=== PATIENT | male | born 1945 | race Caucasian/White ===

== ENCOUNTER 2017-01-12 09:06 | Day surgery (SDC) | payer MEDICARE, BC ==
[~2017-01-12] VITALS: Ht 182.9 cm; Wt 113.6 kg
[~2017-01-12 09:06] MED LIST: BAYER CHEWABLE81 MG PO; CIPRO500 MG PO; CO Q-10100 MG PO; COENZYME Q1030 MG PO; FLAGYL500 MG PO; GLUCOSAMINE & C1 CAP; MULTI-DAY VITAM1 TAB PO; MULTIPLE VITAMI1 TA1 PO; NORCO 5/325 TAB1 TA1 PO; OMEGA-3100 MG; PRAVACHOL20 MG PO; PRILOSEC20 MG PO; VIAGRA100 MG PO; ZYVOX600 MG PO
[2017-01-12] MEDS ORDERED: GLUCOSAMINE & C1 CAP PO (10:57)
[2017-01-12] MEDS ORDERED: FISH OIL 1,0001 CA1 PO (10:57)
[2017-01-12 11:01] VITALS: BP 145/91; Ht 182.9 cm; Wt 113.6 kg
[2017-01-12 11:52] LABS: BASOPHILS 0.3 % (0-2); EOSINOPHILS 2.2 % (0-7); HEMATOCRIT 44.9 % (42.0-54.0); HEMOGLOBIN 15.2 g/dL (13.5-17.5); LYMPHOCYTES 40.4 % (15-50); MCH 30.6 pg (26.0-34.0); MCHC 33.9 g/dL (31.0-37.0); MCV 90.5 fL (80.0-100.0); MEAN PLATELET VOLUME 10.6 fL (7.4-10.4); MONOCYTES 7.3 % (2-11); NEUTROPHILS 49.8 % (40-80); PLATELET COUNT 174 10x3/uL (130-400); RBC 4.96 10x6/uL (4.20-6.10); RDW 13.5 % (11.5-14.5); WBC 3.7 10x3/uL (4.8-10.8)
--- NOTE | 2017-01-12 12:40 | NUR ---
PT REC'D TO ROOM VIA STRETCHER. ALERT, AWAKE.
[2017-01-12 12:46] LABS: CALC OSMOLALITY 278 mosm/kg (275-300); CALCIUM 8.8 mg/dL (8.5-10.1); CARBON DIOXIDE 22.3 mmol/L (21.0-32.0); CHLORIDE - SERUM 104 mmol/L (98-107); CREATININE - SERUM 0.8 mg/dL (0.6-1.3); GLUCOSE 90 mg/dL (74-106); POTASSIUM - SERUM 4.5 mmol/L (3.5-5.1); SODIUM 140 mmol/L (136-145); UREA NITROGEN 12 mg/dL (7-18); eGFR NON AFRICAN AMERICAN > 90 mL/min (90-120)
--- NOTE | 2017-01-12 12:55 | NUR ---
TOLERATED FULL LIQ DIET.
--- NOTE | 2017-01-12 13:20 | NUR ---
IV D/C'D INTACT. DISCHARGE INSTRUCTIONS EXPLAINED TO PT. VOICED UNDERSTANDING. COPIES OF ALL GIVEN TO PT.
--- NOTE | 2017-01-12 13:30 | NUR ---
D/C'D HOME VIA W/C TO PRIVATE CAR.
--- NOTE | 2017-01-19 15:43 | HP ---
PATIENT: SRUTHI PARR MEDICAL RECORD: [id number] ACCOUNT: [id number] LOCATION:[facility] : 49 ADMISSION DATE: 01/12/17 HISTORY AND PHYSICAL EXAMINATION CHIEF COMPLAINT: History of colon polyps. HISTORY OF PRESENT ILLNESS: The patient has undergone colonoscopy in the past and was found to have adenomatous polyps at 80 cm and 85 cm. He has had no symptoms recently. He does have a very large recurrent incisional hernia in the periumbilical area. It is self reducing. HOME MEDICATIONS: Viagra, aspirin, Prilosec and CoQ12. ALLERGIES: PERCODAN WELL OXYCODONE. SOCIAL HISTORY: Nonsmoker. PAST MEDICAL AND SURGICAL HISTORY: Colon polyps, history of multiple hernia repairs, history of small-bowel obstruction, history of right shoulder surgery, history of BPH, gastroesophageal reflux which is controlled. PHYSICAL EXAMINATION: GENERAL: The patient does not appear acutely ill. He does not appear chronically ill. VITAL SIGNS: Reviewed. EARS: External ears appear normal. EYES: Extraocular movements are intact. NECK: Trachea is midline. CHEST: No intercostal retractions. ABDOMEN: As described above. IMPRESSION: 1. History of colon polyps. 2. Family history of colon cancer in his mother. PLAN: Will be surveillance colonoscopy. TRANSINT:[id number] Voice Confirmation ID: [id number] DOCUMENT ID: [id number] MABEL OBRIEN MD at 1543 CC: RIAN HDZ MD and MABEL SANTANA DO [id number] DICTATION DATE: 01/12/17 1151 RESERVATIONS SALES SUPERVISOR: 01/12/17 1229 [facility] 01/12/17 [id number] [place] [address]
--- NOTE | 2017-01-19 15:43 | OP ---
PATIENT NAME: SRUTHI PARR MEDICAL RECORD: [id number] :49 LOCATION:[facility] ADMISSION DATE: SURGEON: BILLY OBRIEN MD DATE OF OPERATION: 01/12/2017 PREOPERATIVE DIAGNOSES: 1. History of colon polyps. 2. Family history of colon cancer. POSTOPERATIVE DIAGNOSES: 1. History of colon polyps. 2. Family history of colon cancer. 3. One rectal polyp, 7 cm, sessile. PROCEDURES: 1. Total colonoscopy to cecum. 2. Hot biopsy forceps polypectomy times 1. SURGEON: Billy Obrien MD FIELD MARKETING SPECIALIST: None. BLOOD LOSS: Minimal. ANESTHESIA: IV sedation. COMPLICATIONS: None. The risks, possible complications, and alternatives to the procedure were explained to the patient. He elects to proceed. OPERATIVE COURSE: The patient was conveyed to the endoscopy suite electively on 01/12/2017. IV sedation was induced by the anesthesia staff. The patient was placed in the Randolph position. A digital rectal examination was performed. A colonoscope was inserted through the anus. It was easily advanced to the cecum. The prep was adequate. I slowly withdrew the endoscope. I dragged the folds. I irrigated and aspirated extensively. I used direct imaging as well as narrow band imaging. A retroflex view was obtained in the rectum. There was 1 rectal polyp. This was removed in its entirety utilizing hot biopsy forceps polypectomy technique. The endoscope was then withdrawn under direct vision. I will see the patient in my office in 2-3 weeks to discuss the results of his biopsy. I will plan for his next colonoscopy to take place in 3 years. TRANSINT:[id number] Voice Confirmation ID: [id number] DOCUMENT ID: [id number] OPERATIVE REPORT [id number] SRUTHI PARR BILLY OBRIEN MD at 1543 CC: RIAN HDZ MD and BILLY SANTANA DO [id number] DICTATION DATE: 01/12/17 1219 SYSTEMS INTEGRATION ENGINEER: 01/12/17 1414 [facility] 01/12/17 [facility] [address] [place] [address]
== END 2017-01-12 13:30 | disposition home or self-care (01) ==
LOC: D.OPS 09:06
PROVIDERS: Anesthesiology
DX: Z12.11 Encounter for screening for malignant neoplasm of colon (principal); K62.1 Rectal polyp; Z86.010 Personal history of colon polyps; Z80.0 Family history of malignant neoplasm of digestive organs; K43.2 Incisional hernia without obstruction or gangrene; Z79.82 Long term (current) use of aspirin; Z79.899 Other long term (current) drug therapy; Z88.5 Allergy status to narcotic agent; N40.0 Benign prostatic hyperplasia without lower urinary tract symptoms; K21.9 Gastro-esophageal reflux disease without esophagitis; Z01.812 Encounter for preprocedural laboratory examination